=== PATIENT | female | born 1985 | race Caucasian/White ===

== ENCOUNTER → 2020-10-14 08:17 | Outpatient (CLI) | payer OTHER, SELFPAY ==
--- NOTE | ~2020-10-14 | US_ITS ---
US breast LT limited DATE: 10/14/2020 08:31 INDICATION: Palpable left breast Ambriz at 1-2 o'clock for 3 weeks, decreased in size. Patient is not a ble to feel it today. No pain, no injury. No family history of breast cancer. TECHNIQUE: High resolution targeted ultrasound imaging of upper outer quadrant of left breast COMPARISON: None FINDINGS: No suspicious mass or shadowing is evident. No cyst is identified. IMPRESSION: BI-RADS Category 1: Negative Recommendation: Routine mammographic screening beginning at age 40 Reviewed, dictated and finalized at [facility]. Reviewed, dictated and finalized at location A. NG PIT BOSS
== END ==
PROVIDERS: Visit Provider Nurse Practitioner
DX: N63.21 Unspecified lump in the left breast, upper outer quadrant (principal)
CPT/HCPCS: 76642

== ENCOUNTER 2021-04-17 14:35 | Emergency (ER) | payer OTHER, SELFPAY ==
--- NOTE | ~2021-04-17 | XR_ITS ---
EXAMINATION: XR ankle RT min 3V INDICATION: Right ankle pain TECHNIQUE: Four views of the right ankle are obtained. COMPARISON: None available FINDINGS: There is soft tissue swelling of ankle. Two small linear areas of heterotopic ossification are seen distal to the lateral malleolus. Bone alignment is normal. The joint spaces are normal. IMPRESSION: 1. Possible tiny avulsion injuries of the lateral malleolus. Reviewed, dictated and finalized at location [facility].
--- NOTE | 2021-04-17 14:47 | ED.LOWEXIN ---
HPI - Extremity Injury (Lower) General Chief Complaint: Extremity Injury, Lower Stated Complaint: Rt ankle pain Time Seen by Provider: 04/17/21 15:00 Source: patient and RN notes reviewed Mode of arrival: ambulatory Limitations: no limitations History of Present Illness HPI Narrative: 35-year-old female presents concern for right ankle and foot tingling. Reports 1-1/2 weeks ago she rolled her ankle causing swelling and pain. Reports the pain has resolved, still reports swelling on the lateral ankle. She reports what brought her in today is she has began feeling a tingling sensation from the ankle down into the foot and up into the lower leg. She reports she is used ice, elevation with no relief of the tingling sensation. She denies significant pain with palpation, range of motion, weightbearing. Related Data Home Medications Medication Instructions Recorded Confirmed estradiol 6 mg PO DAILY 04/17/21 04/17/21 labetalol 100 mg PO BID 04/17/21 04/17/21 Allergies Allergy/AdvReac Type Severity Reaction Status Date / Time No Known Allergies Allergy Verified 04/17/21 14:55 Review of Systems Review of Systems: Narrative: CONSTITUTIONAL: Denies malaise, chills, sweats, or fever. SKIN: Denies open skin, redness, bruising MUSCULOSKELETAL: Reports right ankle and foot tingling, ankle swelling NEUROLOGIC: Denies numbness, weakness All systems reviewed & are unremarkable except as noted in HPI and below PMFSH Family History Family History (Updated 05/24/14 @ 07:13 by DOCTOR UNKNOWN) Mother Hypertension Social History Social History Smoking status: Never smoker Alcohol intake: current Comments At time of signature, agree with nursing past medical, surgical, social and family history. There is no relevant family history pertinent to the presenting complaint Exam Narrative: Exam Narrative: GENERAL: Well-appearing, well-nourished, and in no acute distress. HEAD: Normocephalic, atraumatic. EYES: PERRLA, conjunctivae clear NECK: Supple. CHEST: Speaks in full sentences. No respiratory distress. HEART: Regular rate and rhythm. Normal and equal peripheral pulses. EXTREMITIES: Right ankle, foot, digits have normal strength and sensation, normal range of motion. Mild lateral edema, no ecchymosis. 5/5 strength with ankle and digit flexion and extension. Normal sensation with sensitivity to light touch and pain. No point tenderness. No open wounds, no skin tenting, no devitalized tissue or atrophy, no trophic changes, no obvious deformity, alignment normal, nearby joints and structures intact. Distal pulses palpable and equal bilaterally, skin warm, dry, pink. Capillary refill less than 3 seconds. SKIN: Warm, dry, no rash. NEURO: Alert and oriented x3. PSYCH: Normal mood and affect Course Course Emergency Course: Patient is aware of diagnosis, understands and agrees to treatment plan. Anticipatory guidance given. Patient agrees to follow-up as directed and is aware of reasons to seek care at the emergency department. Portions of this record may have been created with voice recognition software Vital Signs Vital signs: Reviewed. MDM - Extremity Injury (Lower) MDM Narrative Medical decision making narrative: Patients injury is consistent with musculoskeletal etiology. No signs of neurological or vascular compromise on exam. Compartments and tissues are soft without signs of compartment syndrome. Pain is felt appropriate for further evaluation on an outpatient basis. Imaging Data My impression: Images reviewed, interpreted by radiologist, agree, see report. Radiologist's impression: EXAMINATION: XR ankle RT min 3V INDICATION: Right ankle pain TECHNIQUE: Four views of the right ankle are obtained. COMPARISON: None available FINDINGS: There is soft tissue swelling of ankle. Two small linear areas of heterotopic ossification are seen distal to the lateral malleolus. Bone alignment is normal. The joint spaces are no
[2021-04-17 14:48] VITALS: BP 139/91; PULSE 81; RESP 18; TEMP 36.8; O2SAT 100
== END 2021-04-17 15:24 | disposition home or self-care (01) ==
PROVIDERS: Emergency Provider Nurse Practitioner; PCP Internal Medicine
DX: S82.61XA Displaced fracture of lateral malleolus of right fibula, initial encounter for closed fracture (principal); X50.9XXA Other and unspecified overexertion or strenuous movements or postures, initial encounter; I10 Essential (primary) hypertension; Z90.5 Acquired absence of kidney
CPT/HCPCS: 73610; 99203; G0463

== ENCOUNTER 2021-08-25 11:32 | Outpatient (CLI) | payer OTHER, SELFPAY ==
--- NOTE | ~2021-08-25 | US_ITS ---
US breast RT limited DATE: 08/25/2021 12:07 INDICATION: Palpable area at 10:00 5 cm from nipple TECHNIQUE: High-resolution ultrasound imaging and color flow imaging targeted to 10:00 5 cm from nipp le at area of clinical complaint COMPARISON: None FINDINGS: No suspicious mass or shadowing or other significant sonographic finding is evident at the area of clinical complaint at 10:00 5 cm from nipple IMPRESSION: BI-RADS Category 1: Negative Recommendation: Consider diagnostic right mammogram if symptoms persist. Routine screening beginning at age 40 is recommended. Reviewed, dictated and finalized at [facility]. Reviewed, dictated and finalized at location A. [employer]OVERING
== END 2021-08-25 11:33 | disposition home or self-care (01) ==
LOC: ANHIMG 11:37
PROVIDERS: PCP Internal Medicine; Visit Provider Nurse Practitioner
DX: N63.12 Unspecified lump in the right breast, upper inner quadrant (principal)
CPT/HCPCS: 76642

== ENCOUNTER 2022-10-15 07:39 | Outpatient (CLI) | payer OTHER, SELFPAY ==
--- NOTE | ~2022-10-15 | US_ITS ---
EXAMINATION: US breast RT limited HISTORY: Palpable lump in the upper outer quadrant right breast TECHNIQUE: Limited right breast ultrasound is performed FINDINGS: There is no evidence of focal abnormal cystic or solid mass in the vicinity of the reported palpable abnormality of concern. IMPRESSION: No specific sonographic correlate is identified for the reported palpable abnormality of concern. Fur ther evaluation at this time should be based on clinical assessment. Continued follow-up physical exa mination is recommended. BI-RADS Category 1: Negative Reviewed, dictated and finalized at location A. [employer]INTE[employer]CE IMPRESSION: No specific sonographic correlate is identified for the reported palpable abnor mality of concern. Further evaluation at this time should be based on clinical assessment. Continued follow-up physical examination is recommended. BI-RADS Category 1: Negative
== END 2022-10-15 07:40 ==
LOC: MICIMG 07:40
PROVIDERS: Visit Provider Nurse Practitioner
DX: N64.59 Other signs and symptoms in breast (principal)
CPT/HCPCS: 76642

== ENCOUNTER 2023-01-19 15:16 | Outpatient (RCR) | payer OTHER, SELFPAY ==
[2023-01-18 08:11] LABS: Hematocrit 36.8 % (37.0-47.0); Hemoglobin 12.2 g/dL (12.0-15.0)
[2023-01-18 08:22] LABS: Glucose 1 Hour PP 50gm Dose 174 mg/dL
[2023-01-18 08:50] LABS: Vitamin D 25 Hydroxy 62.4 ng/mL
[2023-01-18 09:03] LABS: HIV 1/2 Ab P24 Ag Result Negative (Negative)
[2023-01-19] MEDS: RHO(D) IMMUNE GLOBULIN 300 MCG/2 ML SYRINGE IM (12:33)
== END 2023-01-19 16:00 | disposition home or self-care (01) ==
LOC: ANHLAB 15:16
PROVIDERS: Visit Provider Obstetrics & Gynecology Gynecology
DX: Z11.4 Encounter for screening for human immunodeficiency virus [HIV] (principal); Z29.13 Encounter for prophylactic Rho(D) immune globulin; O36.0190 Maternal care for anti-D [Rh] antibodies, unspecified trimester, not applicable or unspecified; Z3A.00 Weeks of gestation of pregnancy not specified; E53.8 Deficiency of other specified B group vitamins
CPT/HCPCS: 36415; 82306; 82607; 82947; 85014; 85018; 85461; 86703; 86850; 86900; 86901; 90384; 96372; G0432; J2790

== ENCOUNTER 2023-01-30 07:02 | Outpatient (CLI) | payer OTHER, SELFPAY ==
[2023-01-30 07:45] LABS: Glucose Fasting Gestational 85 mg/dL (>/=95)
[2023-01-30 09:09] LABS: Glucose 1 Hour Gest 174 mg/dL (>/=180)
[2023-01-30 10:11] LABS: Glucose 2 Hour Gest 143 mg/dL (>/= 155)
[2023-01-30 11:14] LABS: Glucose 3 Hour Gest 92 mg/dL (>/=140)
== END 2023-01-30 07:03 | disposition home or self-care (01) ==
LOC: ANHLAB 07:04
PROVIDERS: Visit Provider Obstetrics & Gynecology Gynecology
DX: O99.810 Abnormal glucose complicating pregnancy (principal); Z3A.00 Weeks of gestation of pregnancy not specified
CPT/HCPCS: 36415; 82951; 82952

== ENCOUNTER 2023-02-13 15:47 | Emergency (ER) | payer OTHER, SELFPAY ==
[2023-02-13] VITALS (7 sets, daily range): BP systolic 111–125; BP diastolic 64–87; PULSE 86–99; RESP 16–23; TEMP 36.8; O2SAT 97–100
--- NOTE | 2023-02-13 15:54 | ECG_ITS ---
Measurements Intervals [place] Rate: 91 P: 52 WV: 139 QRS: 61 QRSD: 102 T: 29 QT: 336 QTc: 415 Interpretive Statements SINUS RHYTHM INCOMPLETE RIGHT BUNDLE BRANCH BLOCK BORDERLINE ECG NO PREVIOUS ECG AVAILABLE FOR COMPARISON Electronically Signed On 02-13-2023 17:51:15 CDT by Fly Buck D.O.
--- NOTE | 2023-02-13 16:04 | ED.ARRPALP ---
HPI - Arrhythmia/Palpitations General Chief Complaint: Arrhythmia/Palpitations Stated Complaint: irregular heart rhythm Time Seen by Provider: 02/13/23 15:54 History of Present Illness HPI narrative: 37-year-old female that is 31 weeks and follows up with Dr. Mccormack presenting to the ED of heart palpitations. Patient felt that she was having irregular heartbeats that is worsened with standing. Patient does have a prior history of SVT and hypertension. Patient has a single kidney congenitally. Patient reports that she has been eating and drinking well but states when she stands up she does feel that her abnormal heartbeat does worsen. Related Data Home Medications Medication Instructions Recorded Confirmed estradiol 2 mg tablet 6 mg PO DAILY 04/17/21 04/22/21 labetalol 100 mg tablet 100 mg PO BID 04/17/21 04/22/21 comb no.42-folic acid See Rx Instructions PO .qday 04/22/21 Allergies Allergy/AdvReac Type Severity Reaction Status Date / Time adhesive Allergy Intermediate erythema Verified 02/13/23 16:01 doxycycline Allergy Swelling Verified 02/13/23 16:01 latex Allergy Unknown Verified 02/13/23 16:01 Vicryl Suture Allergy Blister Uncoded 02/13/23 15:47 Review of Systems Review of Systems: All systems reviewed & are unremarkable except as noted in HPI and below PMFSH Past Medical History Medical History Acute right ankle pain Constipation High blood pressure Moderate right ankle sprain Right ankle instability Surgical History Surgical History History of nephrectomy, right ~1989 Family History Family History Mother Hypertension Other High cholesterol Social History Social History Alcohol intake: current Substance use: never Occupation/Education: occupation 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 HEAD: normocephalic, atraumatic. EYES: PERRLA/EOMI, conjunctivae clear. NOSE: Normal no drainage NECK: Supple. No adenopathy, no masses. RESPIRATORY: Airway patent, respirations nonlabored. Clear to auscultation bilaterally, no rales, rhonchi, wheezing. CARDIOVASCULAR: Regular rate and rhythm without murmurs rubs or gallops. ABDOMINAL: Soft, nontender, nondistended, normal bowel sounds, gravid abdomen MUSCULOSKELETAL: Moves all extremities. Strength/ROM intact, No edema, No calf tenderness. NEURO: Alert. Cranial nerves II through XII intact. Intact SKIN: Warm, dry. Normal Color Course Course Emergency Course: 37-year-old female presented to the emergency department for evaluation of abnormal heart rhythm. Patient was evaluated by BOILING OFF WINDER and patient had a healthy heart rate with no contractions. Patient did feel improved after rehydration. Patient was afebrile with no leukocytosis. Patient's CMP was normal appearing. Patient had normal TSH and mag as well. UA did have leuk esterase and urine culture was ordered Patient was updated on the results of the work-up. All questions and concerns were addressed. Patient was well-appearing at time of discharge Vital Signs Vital signs: Vital Signs Temperature 98.2 F 02/13/23 15:55 Pulse Rate 99 02/13/23 15:55 Respiratory Rate 18 02/13/23 15:55 Blood Pressure 125/87 02/13/23 15:55 Pulse Oximetry 100 02/13/23 15:55 Temperature 98.2 F 02/13/23 15:55 Pulse Rate 86 02/13/23 18:27 Respiratory Rate 18 02/13/23 18:27 Blood Pressure 119/73 02/13/23 18:27 Pulse Oximetry 98 02/13/23 18:27 MDM - Arrhythmia/Palpitations Lab Data Attestation: I reviewed the patient's lab results. 02/13/23 16:08 05
[2023-02-13] MEDS: SODIUM CHLORIDE 0.9% IV 1,000 ML 999 ML IV CONT (16:14)
[2023-02-13 16:17] LABS: Basophils Percent Auto 0.3 % (0.2-1.2); Eosinophils Absolute Auto 0.1 K/mm3 (0-0.3); Eosinophils Percent Auto 1.3 % (0-4.4); Hematocrit 35.8 % (37.0-47.0); Hemoglobin 11.8 g/dL (12.0-15.0); Immature Granulocyte Absolute 0.07 K/mm3 (0.00-0.031); Immature Granulocyte Percent A 0.7 % (0-0.5); Lymphocytes Absolute Auto 1.83 K/mm3 (0.9-3.2); Lymphocytes Percent Auto 19.4 % (18.3-44.2); Mean Corpuscular Hemoglobin 30.5 pg (26-34); Mean Corpuscular Volume 92.5 fl (80-100); Monocytes Percent Auto 10.5 % (2.6-8.5); Neutrophils Absolute Auto 6.4 K/mm3 (1.3-6.7); Neutrophils Percent Auto 67.8 % (45.5-73.1); Platelet Count Result 249 k/mm3 (150-375); Red Blood Count 3.87 M/mm3 (4.2-5.4); Red Cell Distribution Width 12.3 % (11.5-14.5); White Blood Count 9.4 K/mm3 (4.5-10.0)
[2023-02-13 16:27] LABS: Alanine Aminotransferase 19 U/L (6-35); Albumin Level 3.4 g/dL (3.5-5.1); Alkaline Phosphatase 73 U/L (38-126); Anion Gap 3 mmol/L (8-16); Aspartate Amino Transferase 25 U/L (14-36); Bilirubin,Total 0.2 mg/dL (0.2-1.3); Blood Urea Nitrogen 10 mg/dL (7-17); Calcium 8.6 mg/dL (8.4-10.2); Carbon Dioxide 28 mmol/L (22-30); Chloride 105 mmol/L (98-107); Estimated CRCL calculation 110 ml/min; Estimated Glomerular Filt Rate > 60; Glucose 80 mg/dL (65-110); Potassium 3.8 mmol/L (3.4-5.0); Sodium 136 mmol/L (137-145)
[2023-02-13 16:30] LABS: Appearance Urine Clear (Clear); Bacteria Urine None Seen /hpf; Bilirubin Urine Negative (Negative); Blood Urine Negative (Negative); Color Urine Yellow (Yellow); Glucose Urine UA Negative (Negative); Ketones Urine Negative (Negative); Leukocyte Esterase Ur Trace LEU/UL (Negative); Need Manual Microscopic Reviewed; Nitrate Urine Negative (Negative); Non Pathogenic Casts 0-2; Protein Urine Negative (Negative); RBC Urine 0-2 /hpf (0-2); Specific Grav Ur 1.003 (1.001-1.035); Squamous Epithelial Cell Urine None seen /hpf (Few); Urobilinogen Urine 0.2 mg/dL (<2.0); WBC Urine 0-5 /hpf
[2023-02-13 16:31] LABS: Add Urine Microscopic? YES
--- NOTE | 2023-02-13 17:52 | PC.NURSE ---
Patient walked around the nurses station starting with a heart rate of 85 and went up to 102 but stayed around that range while walking.
== END 2023-02-13 18:29 | disposition home or self-care (01) ==
PROVIDERS: Emergency Medicine; Emergency Provider Emergency Medicine; PCP Internal Medicine
DX: O26.893 Other specified pregnancy related conditions, third trimester (principal); R00.2 Palpitations; O16.3 Unspecified maternal hypertension, third trimester; Z90.5 Acquired absence of kidney; Z3A.31 31 weeks gestation of pregnancy; I45.10 Unspecified right bundle-branch block
CPT/HCPCS: 36415; 80053; 81001; 83735; 84443; 85025; 87086; 93005; 96360; 99283; J7030

== ENCOUNTER 2023-02-28 13:20 | Observation (INO) | payer OTHER, SELFPAY ==
[2023-02-28 13:38] VITALS: BP 126/80; PULSE 85
[2023-02-28 13:45] VITALS: BP 119/78; PULSE 91
[2023-02-28 14:00] VITALS: BP 111/65; PULSE 91
[2023-02-28 14:15] VITALS: BP 115/72; PULSE 83
[2023-02-28 14:30] VITALS: BP 114/85; PULSE 107
[2023-02-28 14:43] VITALS: BMI 27.6
--- NOTE | 2023-02-28 14:44 | OBADM ---
This patient, Rylee Alvarado, admitted to the OB room OB Post 117 for observation. Patient/family oriented to hospital policies and general routines including ID bracelet, bed and alarms, visiting hours, pain management, procedures, bathroom and other care routines, personal items, smoking policy, room service/diet, and visiting hours. Patient/Family are encouraged to report perceived risks to care and to ask questions if they do not understand what they are told or what they should do.
[2023-02-28 14:46] VITALS: BP 105/61; PULSE 82
--- NOTE | 2023-03-12 12:43 | PM.OBTRLD ---
OB - Triage/Final Diagnosis Visit Information Reason for evaluation: threatened labor Comments/Additional reasons for admission: I have assessed the risk for this patient, Rylee Alvarado, and determined that she would benefit from observation care.
== END 2023-02-28 15:00 | disposition home or self-care (01) ==
PROVIDERS: Admitting Provider Obstetrics & Gynecology Gynecology; PCP Internal Medicine; Visit Provider Obstetrics & Gynecology Gynecology
DX: O47.9 False labor, unspecified (principal); Z3A.00 Weeks of gestation of pregnancy not specified
CPT/HCPCS: G0378; G0379

== ENCOUNTER 2023-03-12 13:18 | Outpatient (CLI) | payer OTHER, SELFPAY ==
[2023-03-12 13:43] LABS: Alanine Aminotransferase 22 U/L (6-35); Albumin Level 3.1 g/dL (3.5-5.1); Alkaline Phosphatase 85 U/L (38-126); Anion Gap 4 mmol/L (8-16); Aspartate Amino Transferase 34 U/L (14-36); Bilirubin,Total 0.3 mg/dL (0.2-1.3); Blood Urea Nitrogen 7 mg/dL (7-17); Calcium 7.9 mg/dL (8.4-10.2); Carbon Dioxide 26 mmol/L (22-30); Chloride 103 mmol/L (98-107); Estimated Glomerular Filt Rate > 60; Glucose 137 mg/dL (65-110); Potassium 3.5 mmol/L (3.4-5.0); Sodium 133 mmol/L (137-145)
[2023-03-19 16:49] LABS: Chenodeoxycholic Acid 1.1 umol/L (< OR = 3.9); Cholic Acid <0.5 umol/L (< OR = 2.8); Deoxycholic Acid 1.7 umol/L (< OR = 2.3); Total Bile Acids 2.8 umol/L (< OR = 8.3)
== END 2023-03-12 13:19 | disposition home or self-care (01) ==
PROVIDERS: PCP Internal Medicine; Visit Provider Obstetrics & Gynecology Gynecology
DX: L29.9 Pruritus, unspecified (principal)
CPT/HCPCS: 36415; 80053; 82542

== ENCOUNTER 2023-03-15 11:11 | Outpatient (CLI) | payer OTHER, SELFPAY ==
[2023-03-15 11:57] LABS: Hematocrit 37.4 % (37.0-47.0); Hemoglobin 12.2 g/dL (12.0-15.0); Mean Corpuscular HGB Conc 32.6 g/dl (32-36); Mean Corpuscular Volume 91.9 fl (80-100); Mean Platelet Volume 9.1 fl (7.4-10.4); Platelet Count Result 266 k/mm3 (150-375); Red Blood Count 4.07 M/mm3 (4.2-5.4); Red Cell Distribution Width 12.7 % (11.5-14.5); White Blood Count 9.2 K/mm3 (4.5-10.0)
[2023-03-15 12:08] LABS: Alanine Aminotransferase 25 U/L (6-35); Albumin Level 3.4 g/dL (3.5-5.1); Alkaline Phosphatase 102 U/L (38-126); Anion Gap 5 mmol/L (8-16); Aspartate Amino Transferase 32 U/L (14-36); Bilirubin,Total 0.3 mg/dL (0.2-1.3); Blood Urea Nitrogen 7 mg/dL (7-17); Calcium 8.2 mg/dL (8.4-10.2); Carbon Dioxide 24 mmol/L (22-30); Chloride 104 mmol/L (98-107); Estimated Glomerular Filt Rate > 60; Glucose 70 mg/dL (65-110); Sodium 133 mmol/L (137-145)
== END 2023-03-15 11:12 | disposition home or self-care (01) ==
LOC: ANHLAB 11:14
PROVIDERS: PCP Internal Medicine; Visit Provider Obstetrics & Gynecology Gynecology
DX: R79.9 Abnormal finding of blood chemistry, unspecified (principal); L29.9 Pruritus, unspecified
CPT/HCPCS: 36415; 80053; 85027

== ENCOUNTER 2023-04-05 08:00 | Outpatient (RCR) | payer OTHER, SELFPAY ==
--- NOTE | ~2023-04-05 | US_ITS ---
EXAMINATION: US OB BPP wo non-stress DATE: 04/05/2023 09:14 INDICATION: Nonreactive nonstress test, third trimester TECHNIQUE: Real-time pelvic ultrasound was performed. The interpreting radiologist was not present fo r the study. COMPARISON: None. FINDINGS: There is a single living fetus in vertex presentation. The placenta is fundal. heart rate is 14 0 beats per minute (bpm). Biophysical profile performed by the technologist: breathing (30 sec sustained breathing in 30 minutes): 2 out of 2 movement (3 gross body movements in 30 minutes): 2 out of 2 tone (one episode of fvvweny-hzpfmnzpx-drzbtxf limb movement): 2 out of 2 Amniotic fluid pocket (2 cm): 2 out of 2 Total score: 8 out of 8 IMPRESSION: 1. Single living fetus in vertex presentation. 2. Biophysical profile 8 out of 8. Reviewed, dictated and finalized at location B.
[2023-04-05 09:22] VITALS: BP 116/76; PULSE 91
== END 2023-05-10 12:59 | disposition home or self-care (01) ==
LOC: ANHOBOP 08:00
PROVIDERS: PCP Internal Medicine; Visit Provider Obstetrics & Gynecology Gynecology
DX: O16.3 Unspecified maternal hypertension, third trimester (principal); Z3A.37 37 weeks gestation of pregnancy
CPT/HCPCS: 59025; 76819

== ENCOUNTER 2023-04-08 04:55 | Inpatient (IN) | payer OTHER, SELFPAY ==
[2023-04-08] VITALS (139 sets, daily range): BP systolic 86–130; BP diastolic 54–94; PULSE 63–111; RESP 16; TEMP 35.9–37.1; O2SAT 96–100; BMI 28.7
--- NOTE | 2023-04-08 05:19 | LDADM ---
This patient, Rylee Alvarado, was admitted to Labor/Delivery/Recovery 103 on 04/08/23 at 04:55. Plans for labor, pain management and were discussed with patient. Patient/family oriented to hospital policies and general routines including ID bracelet, bed and alarms, visiting hours, pain management, procedures, bathroom and other care routines, personal items, smoking policy, room service/diet and guest tray routines, infant security routines, and visiting hours. Patient/Family are encouraged to report perceived risks to care and to ask questions if they do not understand what they are told or what they should do. See OBIX for further documentation.
[2023-04-08 05:24] LABS: Basophils Percent Auto 0.5 % (0.2-1.2); Eosinophils Absolute Auto 0.1 K/mm3 (0-0.3); Eosinophils Percent Auto 1.1 % (0-4.4); Hematocrit 36.6 % (37.0-47.0); Immature Granulocyte Absolute 0.05 K/mm3 (0.00-0.031); Immature Granulocyte Percent A 0.6 % (0-0.5); Lymphocytes Absolute Auto 1.97 K/mm3 (0.9-3.2); Mean Corpuscular HGB Conc 32.8 g/dl (32-36); Mean Corpuscular Hemoglobin 29.9 pg (26-34); Mean Corpuscular Volume 91.3 fl (80-100); Mean Platelet Volume 9.1 fl (7.4-10.4); Monocytes Absolute Auto 0.6 K/mm3 (0.1-0.6); Monocytes Percent Auto 6.7 % (2.6-8.5); Neutrophils Absolute Auto 5.5 K/mm3 (1.3-6.7); Neutrophils Percent Auto 67.1 % (45.5-73.1); Platelet Count Result 253 k/mm3 (150-375); Red Blood Count 4.01 M/mm3 (4.2-5.4); Red Cell Distribution Width 13.1 % (11.5-14.5); White Blood Count 8.2 K/mm3 (4.5-10.0)
[2023-04-08] MEDS: OXYTOCIN 30 UNITS/NS 500 ML 30 UNITS/500 ML BAG IV CONT (05:32)
[2023-04-08] MEDS: LACTATED RINGERS 1,000 ML 125 ML IV CONT ×3 (05:32→14:36)
[2023-04-08 05:33] LABS: Alanine Aminotransferase 25 U/L (6-35); Albumin Level 3.3 g/dL (3.5-5.1); Alkaline Phosphatase 125 U/L (38-126); Anion Gap 7 mmol/L (8-16); Aspartate Amino Transferase 29 U/L (14-36); Bilirubin,Total 0.3 mg/dL (0.2-1.3); Blood Urea Nitrogen 8 mg/dL (7-17); Calcium 8.5 mg/dL (8.4-10.2); Carbon Dioxide 22 mmol/L (22-30); Chloride 105 mmol/L (98-107); Estimated CRCL calculation 111 ml/min; Estimated Glomerular Filt Rate > 60; Glucose 147 mg/dL (65-110); Potassium 3.6 mmol/L (3.4-5.0); Sodium 134 mmol/L (137-145)
--- NOTE | 2023-04-08 07:33 | WPDOBADMIT ---
Obstetrics - Admit Note Admission Note: record reviewed. No pertinent additions to the history and/or any subsequent changes in the physical findings that are not consistent with the expected course of the were found. Additions to the history and/or subsequent changes in the physical findings follow. Here for MIL. Cervix 4/50/-2 AROM with clear fluid. FHTs reactive. Pitocin per protocol
[2023-04-08 09:50] LABS: Rapid Plasma Reagin Non-Reactive (NonReactive)
--- NOTE | 2023-04-08 10:34 | WPDANESEPP ---
Anes - Eval Pre Procedure Procedure: Labor Epidural Date/Time: 04/08/23 10:34 Surgeon: Ksenia Preop Diagnosis: Labor Pain Pre Op Diagnosis: Induction of Labor Patient Data Age: 37 Gender: F Height: 1.63 m Weight: 75.9 kg Last Vital Signs Temp 36.3 C L 04/08/23 09:30 Pulse 72 04/08/23 10:33 BP 119/74 04/08/23 10:33 Pulse Ox 100 04/08/23 10:32 O2 Del Method Room Air 04/08/23 05:17 Allergies Allergy/AdvReac Type Severity Reaction Status Date / Time adhesive Allergy Intermediate erythema Verified 03/29/23 13:29 doxycycline Allergy Swelling Verified 03/29/23 13:29 latex Allergy Unknown Verified 03/29/23 13:29 Vicryl Suture Allergy Blister Uncoded 02/13/23 15:47 Home Medications Medication Instructions Recorded Confirmed Type labetalol 100 mg tablet 100 mg PO BID 04/17/21 04/08/23 History aspirin 81 mg tablet 81 mg PO DAILY 03/29/23 04/08/23 History cholecalciferol (vitamin D3) 50 50 mcg PO DAILY 03/29/23 04/08/23 History mcg (2,000 unit) tablet docusate sodium 50 mg capsule 50 mg PO BID 03/29/23 04/08/23 History vit no.95-ferrous 1 tablet PO DAILY 04/05/23 04/08/23 History fumarate 28 mg-folic acid 800 mcg tablet () Laboratory Tests 04/08/23 05:14 WBC 8.2 K/mm3 (4.5-10.0) RBC 4.01 L M/mm3 (4.2-5.4) Hgb 12.0 g/dL (12.0-15.0) Hct 36.6 L % (37.0-47.0) MCV 91.3 fl (80-100) MCH 29.9 pg (26-34) MCHC 32.8 g/dl (32-36) RDW 13.1 % (11.5-14.5) Plt Count 253 k/mm3 (150-375) MPV 9.1 fl (7.4-10.4) Immature Gran % (Auto) 0.6 H % (0-0.5) Neut % (Auto) 67.1 % (45.5-73.1) Lymph % (Auto) 24.0 % (18.3-44.2) [place] % (Auto) 6.7 % (2.6-8.5) Eos % (Auto) 1.1 % (0-4.4) Baso % (Auto) 0.5 % (0.2-1.2) Lymph # (Auto) 1.97 K/mm3 (0.9-3.2) [place] # (Auto) 0.6 K/mm3 (0.1-0.6) Eos # (Auto) 0.1 K/mm3 (0-0.3) Baso # (Auto) 0.0 K/mm3 (0.0-0.1) Abs Immat Gran (auto) 0.05 H K/mm3 (0.00-0.031) Absolute Neuts (auto) 5.5 K/mm3 (1.3-6.7) Absolute Nucleated RBC 0.0 K/mm3 (0.0-0.012) Nucleated RBC % 0.0 % (0.0-0.2) Sodium 134 L mmol/L (137-145) Potassium 3.6 mmol/L (3.4-5.0) Chloride 105 mmol/L (98-107) Carbon Dioxide 22 mmol/L (22-30) Anion Gap 7 L mmol/L (8-16) BUN 8 mg/dL (7-17) Creatinine 0.60 L mg/dL (0.7-1.0) Estim Creat Clear Calc 111 ml/min Estimated GFR > 60 (59 - ) Glucose 147 H mg/dL (65-110) Calcium 8.5 mg/dL (8.4-10.2) Total Bilirubin 0.3 mg/dL (0.2-1.3) AST 29 U/L (14-36) ALT 25 U/L (6-35) Alkaline Phosphatase 125 U/L (38-126) Total Protein 7.0 g/dL (6.3-8.2) Albumin 3.3 L g/dL (3.5-5.1) RPR Non-reactive (NonReactive) Blood Type A Negative Antibody Screen Positive Antibody Identification Inconclusive Antigen Identification Not Reportable GRAHAM, IgG Interpret Not Performed GRAHAM, Poly Interpret Negative GRAHAM, Complement Interp Not Performed : gestational age (KENDRICK 04/15/23, ) Patient hx anesthesia problems: none Family hx anesthesia problems: none Results Review: All pre-operative results and documents have been reviewed as part of the pre-operative evaluation. [facility] Past Medical History Medical History Acute right ankle pain Constipation High blood pressure Moderate right ankle sprain Right ankle instability Surgical History Surgical History History of nephrectomy, right ~1989 Family History Family History Mother Hypertension High cholesterol Social History Social History Smoking status: Former smoker Tobacco type: cigarettes Alcoh
--- NOTE | 2023-04-08 15:24 | PC.NURSE ---
1310 - Introductions were made and mother shared how she would like to feed her baby with [exclusive /pump and feed] along with her past experience. Encouraged mother to place [id number] until the first feeding if infant is stable and to wait on the weight to help stabilize, reduce stress, and improve latching by allowing infant time to explore parent's chest using instincts. Education was shared on how to protect her milk supply with latching and/or using hand expression to remove milk if infant doesn't latch in the first hour. Resources provided with educational trifold for bonding and feeding infant. Parents voiced understanding of information and to call if there is a request for assistance.
--- NOTE | 2023-04-08 16:23 | PM.OBPRVD ---
OB - Delivery Note Procedure Delivery date: 04/08/23 Procedure: Events: Chronic Hypertension Induction method: AROM and Per Pitocin Protocol Delivery monitor: External FHT and External Uterine Route of delivery: Laceration Description: Periurethral and Perineal - 2nd Degree Delivery repair: chromic (2-0) Specimen: No Quantitative Blood Loss (ml): 350 Anesthesia type: Epidural Disposition: [facility] [place] Baby Date of : 04/08/23 Weeks of gestation at delivery: 39 gender: Female position: Right Occiput Anterior Placenta delivery description: Spontaneous Cord Vessel Description: 3 Vessels
--- NOTE | 2023-04-08 16:26 | P.DS_ITS ---
DS: Admitting Diagnosis Discharge Date 04/09/23 Admitting Diagnosis IUP 39 wks [facility] for CHTN DS: Discharge Diagnosis Discharge Diagnosis (1) (normal spontaneous vaginal delivery): Code(s): O80 - Encounter for full-term uncomplicated delivery Status: Acute OB - DS: Summary OB Procedures : NST and Ultrasound OB Procedures Intrapartum: Spontaneous Vag Delivery OB Procedures: : None Peripartum Data Infant Delivery Method: Natural Vaginal Laceration Description: Periurethral and Perineal - 2nd Degree complications: none Status at Discharge Functional status at discharge: independent ambulation Overall status at discharge: patient is progressing back to baseline Time Spent with Patient Time attestation: Total time spent providing and/or coordinating discharge services: DS: Data Data Completed and Pending Labs on day of discharge: Labs from last 24 hours 04/08/23 05:14 WBC 8.2 RBC 4.01 L Hgb 12.0 Hct 36.6 L MCV 91.3 MCH 29.9 MCHC 32.8 RDW 13.1 Plt Count 253 MPV 9.1 Immature Gran % (Auto) 0.6 H Neut % (Auto) 67.1 Lymph % (Auto) 24.0 [place] % (Auto) 6.7 Eos % (Auto) 1.1 Baso % (Auto) 0.5 Lymph # (Auto) 1.97 [place] # (Auto) 0.6 Eos # (Auto) 0.1 Baso # (Auto) 0.0 Abs Immat Gran (auto) 0.05 H Absolute Neuts (auto) 5.5 Absolute Nucleated RBC 0.0 Nucleated RBC % 0.0 Sodium 134 L Potassium 3.6 Chloride 105 Carbon Dioxide 22 Anion Gap 7 L BUN 8 Creatinine 0.60 L Estim Creat Clear Calc 111 Estimated GFR > 60 Glucose 147 H Calcium 8.5 Total Bilirubin 0.3 AST 29 ALT 25 Alkaline Phosphatase 125 Total Protein 7.0 Albumin 3.3 L RPR Non-reactive Blood Type A Negative Antibody Screen Positive Antibody Identification Inconclusive Antigen Identification Not Reportable GRAHAM, IgG Interpret Not Performed GRAHAM, Poly Interpret Negative GRAHAM, Complement Interp Not Performed Discharge Plan Discharge Attending physician on discharge: Daly Mccormack Discharging Clinician: Daly Mccormack Anticipated Discharge Date/Time: 04/09/23 16:27 Patient Disposition: Home, Self-Care Activity: may shower and pelvic rest Diet: regular Patient Instructions: Antibiotic Form Stand Alone Forms: General Discharge Information Follow-up/Referrals: Daly Mccormack MD [Physician] - 6 Weeks Discharge Medications: Continued labetalol 100 mg tablet 100 mg PO BID PNV cmb#95-ferrous fumarate-FA [] 28 mg iron- 800 mcg Tablet 1 tablet PO DAILY Colace 50 mg Capsule 50 mg PO BID cholecalciferol (vitamin D3) 50 mcg (2,000 unit) Tablet 50 mcg PO DAILY Discontinued Adult Low Dose Aspirin 81 mg Tablet 81 mg PO DAILY Date of admission: 04/08/23 04:55 Primary Care Provider: [facility] Admitting Provider: Daly Mccormack Attending physician on admission: Daly Mccormack Condition: Stable
[2023-04-08] MEDS: OXYTOCIN 30 UNITS/NS 500 ML 30 UNITS/500 ML BAG 125 UNITS IV CONT (16:38)
--- NOTE | 2023-04-08 19:28 | PC.NURSE ---
Patient transferred to post room #291 via (W/C ). Support person present. Oriented to unit, room, information board, rooming in, admission packet and security measures. Patient verbalizes understanding.
[2023-04-08] MEDS: ACETAMINOPHEN 325 MG TABLET 650 MG PO (21:34)
[2023-04-08] MEDS: LABETALOL HCL 100 MG TABLET PO (21:34)
[2023-04-09 00:20] VITALS: BP 113/64; PULSE 80; RESP 16; TEMP 37.2; O2SAT 99
[2023-04-09] MEDS: ACETAMINOPHEN 325 MG TABLET 650 MG PO ×2 (05:19→14:56)
[2023-04-09 06:03] LABS: Hematocrit 30.8 % (37.0-47.0)
--- NOTE | 2023-04-09 07:15 | PM.OBPNVD ---
OB - PN: Subj Subjective Date/time seen: 04/09/23 07:15 Patient comments: no complaints and pain well controlled baby status: doing well OB - PN: Obj Data Labs 04/09/23 05:13 04/08/23 05:14 Labs: Laboratory Results - last 24 hr 04/08/23 04/09/23 05:14 05:13 Hgb 10.0 L Hct 30.8 L RPR Non-reactive Antibody Identification Inconclusive Antigen Identification Not Reportable OB - PN A/P Plan day: 1 Plan: routine care, discharge home and follow up 6 weeks Time Spent With Patient Time: Total time spent is greater than 50% in coordination of care (as documented) at patient's floor/unit and/or counseling patient: Exam : Bimanual exam- vagina & uterus: other (Uterus firm, nt @U)
[2023-04-09 08:50] VITALS: BP 107/61; PULSE 80; RESP 16; TEMP 36.6; O2SAT 100
[2023-04-09 09:34] VITALS: PULSE 80
[2023-04-09] MEDS: MULTIVIT/MIN/PREN/FOL AC/IRON TABLET 1 TAB PO (09:34)
[2023-04-09] MEDS: LABETALOL HCL 100 MG TABLET PO (09:34)
[2023-04-09] MEDS: DOCUSATE SODIUM 100 MG CAPSULE PO (09:34)
[2023-04-09 11:28] VITALS: BP 86/52; PULSE 76; RESP 16; TEMP 37.1; O2SAT 99
--- NOTE | 2023-04-09 13:13 | WPDANLDPN2 ---
Anes-Prog Note L&D Date/Time: 04/09/23 13:13 Comfortable throughout: labor and delivery Neuraxial method: epidural Epidural/Spinal procedure site: clean & non-tender Neuro status: Neuro function grossly intact. Cardiovascular status: normal Respiratory status: normal Airway patency: baseline Mental status: baseline Post-Op hydration status: normal Vital Signs: Last Vital Signs Temp 37.1 C 04/09/23 11:28 Pulse 76 04/09/23 11:28 Resp 16 04/09/23 11:28 BP 86/52 L 04/09/23 11:28 Pulse Ox 99 04/09/23 11:28 O2 Del Method Room Air 04/09/23 00:20 Pain score (VAS): 10 I/O: Intake & Output 04/08/23 04/09/23 04/09/23 23:59 07:59 15:59 Intake Total 840 590 Output Total 656 Balance 184 590 Post-procedural complaints: none Patient feedback: Patient satisfied with anesthetic care.
--- NOTE | 2023-04-09 17:16 | PC.NURSE ---
Patient viewed the discharge video Mother & Baby Care, The First Two Weeks . Patient was given the opportunity and encouraged to ask questions. Patient verbalized understanding of information shared and has been given the mother/baby guide for home reference.
[2023-04-10 11:27] VITALS: BP 122/82; PULSE 72; RESP 18; TEMP 36.9; O2SAT 100
== END 2023-04-09 18:08 | disposition home or self-care (01) | DRG 806 ==
LOC: ANHLDR 16:28 → ANHOB2 19:37
PROVIDERS: Admitting Provider Obstetrics & Gynecology Gynecology; PCP Internal Medicine; Visit Provider Obstetrics & Gynecology Gynecology
DX: O70.1 Second degree perineal laceration during delivery (principal); O10.92 Unspecified pre-existing hypertension complicating childbirth; Z37.0 Single live birth; Z3A.39 39 weeks gestation of pregnancy
CPT/HCPCS: 36415; 59025; 76819; 80053; 85014; 85018; 85025; 86592; 86850; 86880; 86900; 86901; 86902; A9270; J2590; J2795; J7120